=== PATIENT | female | born 1995 | race Caucasian/White ===

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

== ENCOUNTER 2017-08-12 10:04 | Emergency (ER) | payer MEDICAID ==
--- NOTE | 2017-08-12 12:01 | ED Physician Documentation ---
History of Present Illness - Stated complaint Stated Complaint: SI/MED REFILL - Chief complaint Chief Complaint: General - History obtained from History obtained from: Patient - History of Present Illness Timing: Other (She is between doctors and out of her Lexapro. She has chronic depression and suicidal ideation without plan, this is basically unchanged from prior. She is not feeling like she is at risk for doing something imminent. She needs a medication refill on her Lexapro and would also like to try something for when her anxiety is very bad. She has been on hydroxyzine in the past without relief.) Review of Systems Constitutional: denies: Fever, Chills GI: denies: Abdominal Pain : denies: Dysuria, Frequency, Now EGA Skin: denies: Rash, Lesions PD PAST MEDICAL HISTORY - Past Medical History Past Medical History: Yes Psych: Depression Other Past Medical History: celiac disease - Past Surgical History Past Surgical History: No - Present Medications Home Medications: Ambulatory Orders Medication Instructions Recorded Confirmed Alprazolam [Xanax] 0.5 mg PO Q6H PRN #5 tablet 08/12/17 Escitalopram Oxalate 20 mg PO DAILY 08/12/17 Escitalopram Oxalate [Lexapro] 20 mg PO DAILY #30 tablet 08/12/17 - Allergies Allergies/Adverse Reactions: Allergies Allergy/AdvReac Type Severity Reaction Status Date / Time No Known Drug Allergies Allergy Verified 08/12/17 10:17 - Social History Does the pt smoke?: Yes Smoking Status: Current every day smoker PD ED PE NORMAL - Vitals Vital signs reviewed: Yes - General General: Alert and oriented X 3, No acute distress - Neuro Neuro: Alert and oriented X 3 Eye Opening: Spontaneous Motor: Obeys Commands Verbal: Oriented GCS Score: 15 - Psych Psych: Normal mood, Normal affect Results - Vitals Vitals: Vital Signs - 24 hr 08/12/17 10:14 Temperature 37.1 C Heart Rate 110 H Respiratory 18 Rate Blood Pressure 132/91 H O2 Saturation 100 Oxygen O2 Source Room air Departure - Departure Disposition: 01 Home, Self Care Clinical Impression: Depression Qualifiers: Depression Type: major depressive disorder Major depression recurrence: recurrent Active/Remission status: currently active Major depression episode severity: moderate Qualified Code(s): F33.1 - Major depressive disorder, recurrent, moderate Condition: Good Record reviewed to determine appropriate education?: Yes Instructions: ED Depression Prescriptions: Alprazolam [Xanax] 0.5 mg PO Q6H PRN #5 tablet PRN Reason: Anxiety Escitalopram Oxalate [Lexapro] 20 mg PO DAILY #30 tablet Comments: Call your doctor to arrange a follow-up appointment, make the next available appointment. In the interim, return anytime if worse or if new symptoms develop. Your blood pressure was elevated today on check into the emergency department. This does not mean that you have hypertension, it is a common phenomenon to come to the emergency department and have elevated blood pressure. I recommend that you see your primary care physician within the week to have it rechecked when you are feeling better.
[2017-08-12 12:20] VITALS: BP 106/76
== END 2017-08-12 12:19 | disposition home or self-care (01) ==
LOC: ED 10:04
DX: F33.1 Major depressive disorder, recurrent, moderate (principal); R03.0 Elevated blood-pressure reading, without diagnosis of hypertension; F17.200 Nicotine dependence, unspecified, uncomplicated
CPT/HCPCS: 99283

== ENCOUNTER 2017-09-16 12:59 | Emergency (ER) | payer MEDICAID ==
--- NOTE | 2017-09-16 13:38 | ED Physician Documentation ---
PD HPI MHE - Stated complaint Stated Complaint: SI/NOT FEELING WELL - Chief complaint Chief Complaint: MHE - History obtained from History obtained from: Patient - History of Present Illness Primary symptom: Suicidal ideation (She has long-standing depression, it has been worse recently despite restarting her Lexapro maybe a month ago. She has persistent feelings of suicidal ideation without specific plan but is worried she might do something impulsive. She is not getting any support from her parents who feel like she just needs to be more yazdanism. She denies any alcohol or drug use today but she has been drinking on occasion.) Review of Systems Ten Systems: 10 systems reviewed and negative Constitutional: reports: Weight Loss (10 lbs or so). denies: Fever, Chills Eyes: reports: Reviewed and negative Throat: reports: Reviewed and negative Cardiac: reports: Reviewed and negative GI: reports: Abdominal Pain (chronic, d/t celiac), Diarrhea (chronic, d/t celiac ) PD PAST MEDICAL HISTORY - Past Medical History Past Medical History: Yes Psych: Depression Other Past Medical History: Celiac - Past Surgical History Past Surgical History: No - Present Medications Home Medications: Ambulatory Orders Medication Instructions Recorded Confirmed Alprazolam [Xanax] 0.5 mg PO Q6H PRN #5 tablet 08/12/17 Escitalopram Oxalate 20 mg PO DAILY 08/12/17 Escitalopram Oxalate [Lexapro] 20 mg PO DAILY #30 tablet 08/12/17 - Allergies Allergies/Adverse Reactions: Allergies Allergy/AdvReac Type Severity Reaction Status Date / Time No Known Drug Allergies Allergy Verified 08/12/17 10:17 - Social History Does the pt smoke?: Yes Smoking Status: Current every day smoker Does the pt drink ETOH?: No Does the pt have substance abuse?: No - Family History Family history: reports: Non contributory PD ED PE NORMAL - Vitals Vital signs reviewed: Yes - General General: Alert and oriented X 3, No acute distress - HEENT HEENT: PERRL, EOMI - Neck Neck: Supple, no meningeal sign, No bony TTP - Cardiac Cardiac: RRR, No murmur - Respiratory Respiratory: No respiratory distress, Clear bilaterally - Abdomen Abdomen: Normal bowel sounds, Soft, Non tender - Back Back: No CVA TTP, No spinal TTP - Derm Derm: Normal color, Warm and dry - Extremities Extremities: No edema, No calf tenderness / cord - Neuro Neuro: Alert and oriented X 3, Normal speech - Psych Psych: Normal affect, Other (Depressed mood, occasionally tearful.) Results - Vitals Vitals: Vital Signs - 24 hr 09/16/17 09/16/17 13:07 19:31 Temperature 36.1 C L 37.5 C Heart Rate 120 H 103 H Respiratory 15 12 Rate Blood Pressure 134/93 H 118/64 O2 Saturation 100 100 Oxygen O2 Source Room air - Labs Labs: Laboratory Tests 09/16/17 09/16/17 09/16/17 13:16 13:16 13:50 WBC 5.3 RBC 4.60 Hgb 12.8 Hct 38.7 MCV 84.2 MCH 27.8 MCHC 33.1 RDW 15.8 H Plt Count 244 MPV 7.9 Neut # 3.2 Lymph # 1.6 [place] # 0.3 Eos # 0.1 Baso # 0.0 Absolute Nucleated RBC 0.00 Nucleated RBC % 0.1 Sodium Potassium Chloride Carbon Dioxide Anion Gap BUN Creatinine Estimated GFR (MDRD) Glucose Calcium Total Bilirubin AST ALT Alkaline Phosphatase Total Protein Albumin Globulin Albumin/Globulin Ratio Lipase TSH Urine Color LT. YELLOW Urine Clarity CLEAR Urine pH 5.5 Ur Specific [place] <=1.005 Urine Protein NEGATIVE Urine Glucose (UA) NEGATIVE Urine Ketones NEGATIVE Urine Occult Blood NEGATIVE Urine Nitrite NEGATIVE Urine Bilirubin NEGATIVE Urine Urobilinogen 0.2 (NORMAL) Ur Leukocyte Esterase NEGATIVE Ur Microscopic Review NOT INDICATED Urine Culture Comments NOT INDICATED Urine HCG, Qual NEGATIVE Urine Opiates Screen NEGATIVE Ur Oxycodone Screen NEGATIVE Urine Methadone Screen NEGATIVE Ur Propoxyphene Screen NEGATIVE Ur Barbiturates Screen NEGATIVE Ur Tricyclics Screen NEGATIVE Ur Phencyclidine Scrn NEGATIVE Ur Amphetamine Screen NEGATIVE U Methamphetamines Scrn NEGATIVE U Benzodiazepines Scrn NEGATIVE Urine Cocaine Screen NEGATIVE U Cannabinoids Screen POSITIVE H Ethyl Alcohol 09/16/17 09/16/17 13:50 13:50 WBC RBC Hgb Hct MCV MCH MCHC RDW Plt Count MPV Neut # Lymph # [place] # Eos # Baso # Absolute Nucleated RBC Nucleated RBC % Sodium 137 Potassium 3.4 L Chloride 104 Carbon Dioxide 25 Anion Gap 8.0 BUN 5 L Creatinine 0.5 Estimated GFR (MDRD) 157 Glucose 99 Calcium 9.2 Total Bilirubin 1.3 H AST 22 ALT 18 Alkaline Phosphatase 61 Total Protein 7.5 Albumin 4.7 Globulin 2.8 Albumin/Globulin Ratio 1.7 Lipase 12 L TSH 1.00 Urine Color Urine Clarity Urine pH Ur Specific [place] Urine Protein Urine Glucose (UA) Urine Ketones Urine Occult Blood Urine Nitrite Urine Bilirubin Urine Urobilinogen Ur Leukocyte Esterase Ur Microscopic Review Urine Culture Comments Urine HCG, Qual Urine Opiates Screen Ur Oxycodone Screen Urine Methadone Screen Ur Propoxyphene Screen Ur Barbiturates Screen Ur Tricyclics Screen Ur Phencyclidine Scrn Ur Amphetamine Screen U Methamphetamines Scrn U Benzodiazepines Scrn Urine Cocaine Screen U Cannabinoids Screen Ethyl Alcohol < 5.0 PD MEDICAL DECISION MAKING - ED course ED course: Seen and evaluated by the social media job titles and a voluntary bed was arranged at [facility], [place] were completed. Departure - Departure Disposition: 65 Psych Hosp/Unit DC/Xfer Clinical Impression: Depression Qualifiers: Depression Type: major depressive disorder Major depression recurrence: recurrent Active/Remission status: currently active Major depression episode severity: severe Psychotic features: without psychotic features Qualified Code(s ): F33.2 - Major depressive disorder, recurrent severe without psychotic features Condition: Stable Discharge Date/Time: 09/16/17 20:10
[2017-09-16 13:55] LABS: BASOPHILS % (AUTO) 0.5 %; EOSINOPHILS # (AUTO) 0.1 10^3/uL (0.0-0.7); EOSINOPHILS % (AUTO) 1.9 %; HGB - HEMOGLOBIN 12.8 g/dL (12.0-16.0); LYMPHOCYTES # (AUTO) 1.6 10^3/uL (1.5-3.5); MEAN CORPUSCULAR HEMOGLOBIN 27.8 pg (27.0-31.0); MEAN CORPUSCULAR HGB CONC 33.1 g/dL (32.0-36.0); MEAN CORPUSCULAR VOLUME 84.2 fL (81.0-99.0); MEAN PLATELET VOLUME 7.9 fL (7.9-10.8); MONOCYTES # (AUTO) 0.3 10^3/uL (0.0-1.0); MONOCYTES % (AUTO) 6.4 %; NEUTROPHILS # (AUTO) 3.2 10^3/uL (1.5-6.6); NEUTROPHILS % (AUTO) 60.2 %; PLT - PLATELET COUNT 244 10^3/uL (130-450); RED CELL DISTRIBUTION WIDTH 15.8 % (12.0-15.0); WHITE BLOOD COUNT 5.3 x10^3/uL (4.8-10.8)
[2017-09-16 14:01] LABS: MUDS CUTOFF CONCENTRATIONS CUTOFF CONC BELOW:
[2017-09-16 14:04] LABS: BILIRUBIN,URINE NEGATIVE (NEGATIVE); GLUCOSE, URINE (UA) NEGATIVE (NEGATIVE); KETONES,URINE (UA) NEGATIVE (NEGATIVE); LEUKOCYTE ESTERASE, URINE NEGATIVE (NEGATIVE); NITRITE,URINE NEGATIVE (NEGATIVE); OCCULT BLOOD,URINE NEGATIVE (NEGATIVE); PH,URINE 5.5 PH (5.0-7.5); PROTEIN,URINE NEGATIVE (NEGATIVE); UROBILINOGEN,URINE 0.2 (NORMAL) E.U./dL (NORMAL)
[2017-09-16 14:06] LABS: CLARITY,URINE CLEAR (CLEAR)
[2017-09-16 14:06] LABS: ALBUMIN 4.7 g/dL (3.2-5.5); ALBUMIN/GLOBULIN RATIO 1.7 (1.0-2.2); ALKALINE PHOSPHATASE 61 IU/L (42-121); ALT ALANINE AMINOTRANSFERASE 18 IU/L (10-60); AST ASPARTATE AMINOTRANSFERASE 22 IU/L (10-42); BILIRUBIN,TOTAL 1.3 mg/dL (0.2-1.0); BUN - BLOOD UREA NITROGEN 5 mg/dL (6-20); CALCIUM 9.2 mg/dL (8.5-10.3); CARBON DIOXIDE - CO2 25 mmol/L (21-32); CHLORIDE 104 mmol/L (101-111); CREATININE 0.5 mg/dL (0.4-1.0); GFR - MDRD 157 (>89); GLUCOSE 99 mg/dL (70-100); LIPASE 12 U/L (22-51); SODIUM 137 mmol/L (135-145); TOTAL PROTEIN 7.5 g/dL (6.7-8.2)
[2017-09-16 14:07] LABS: HCG UR QUAL NEGATIVE
[2017-09-16 14:14] LABS: AMPHETAMINE SCREEN,URINE NEGATIVE (NEGATIVE); BENZODIAZEPINES SCREEN, URINE NEGATIVE (NEGATIVE); COCAINE SCREEN URINE NEGATIVE (NEGATIVE); METHADONE SCREEN, URINE NEGATIVE (NEGATIVE); METHAMPHETAMINES SCREEN, URINE NEGATIVE (NEGATIVE); OPIATE SCREEN, URINE NEGATIVE (NEGATIVE); OXYCODONE SCREEN, URINE NEGATIVE (NEGATIVE); PROPOXYPHENE SCREEN, URINE NEGATIVE (NEGATIVE); TRICYCLIC ANTIDEPRESSANT,URINE NEGATIVE (NEGATIVE)
[2017-09-16] MEDS ORDERED: ONDANSETRON ODT 4 MG TABLET TL STA (17:16)
[2017-09-16] MEDS ORDERED: PROMETHAZINE 25 MG TABLET PO STA (18:50)
[2017-09-16 19:32] VITALS: BP 118/64
== END 2017-09-16 20:10 ==
LOC: ED 12:59
DX: F33.2 Major depressive disorder, recurrent severe without psychotic features (principal); R45.851 Suicidal ideations; F17.200 Nicotine dependence, unspecified, uncomplicated
CPT/HCPCS: 36415; 80053; 80306; 80320; 81003; 81025; 83690; 84443; 85025; 99283; 99284; Q0162; Q0169; 81001; 87086

== ENCOUNTER 2017-10-08 11:07 | Outpatient (CLI) | payer MEDICAID ==
[2017-10-08 18:58] LABS: BASOPHILS % (AUTO) 0.6 %; EOSINOPHILS # (AUTO) 0.1 10^3/uL (0.0-0.7); EOSINOPHILS % (AUTO) 2.5 %; HGB - HEMOGLOBIN 12.3 g/dL (12.0-16.0); LYMPHOCYTES # (AUTO) 1.2 10^3/uL (1.5-3.5); LYMPHOCYTES % (AUTO) 22.1 %; MEAN CORPUSCULAR HEMOGLOBIN 27.9 pg (27.0-31.0); MEAN CORPUSCULAR HGB CONC 32.2 g/dL (32.0-36.0); MEAN CORPUSCULAR VOLUME 86.6 fL (81.0-99.0); MEAN PLATELET VOLUME 8.8 fL (7.9-10.8); MONOCYTES # (AUTO) 0.3 10^3/uL (0.0-1.0); MONOCYTES % (AUTO) 5.9 %; NEUTROPHILS # (AUTO) 3.7 10^3/uL (1.5-6.6); NEUTROPHILS % (AUTO) 68.9 %; PLT - PLATELET COUNT 310 10^3/uL (130-450); RED BLOOD COUNT 4.41 10^6/uL (4.20-5.40); RED CELL DISTRIBUTION WIDTH 15.9 % (12.0-15.0); WHITE BLOOD COUNT 5.4 x10^3/uL (4.8-10.8)
[2017-10-08 19:33] LABS: BUN - BLOOD UREA NITROGEN 6 mg/dL (6-20); CALCIUM 9.3 mg/dL (8.5-10.3); CARBON DIOXIDE - CO2 26 mmol/L (21-32); CHLORIDE 103 mmol/L (101-111); CREATININE 0.5 mg/dL (0.4-1.0); GFR - MDRD 157 (>89); GLUCOSE 96 mg/dL (70-100); SODIUM 137 mmol/L (135-145)
== END 2017-10-08 11:08 | disposition home or self-care (01) ==
LOC: LAB.N 11:07
PROVIDERS: ATTEND Physician Assistant Medical
DX: G47.00 Insomnia, unspecified (principal); F41.9 Anxiety disorder, unspecified
CPT/HCPCS: 36415; 80048; 84443; 85025

== ENCOUNTER 2017-10-28 14:02 | Emergency (ER) | payer MEDICAID ==
[2017-10-28 16:05] LABS: BASOPHILS % (AUTO) 0.6 %; EOSINOPHILS % (AUTO) 0.1 %; HGB - HEMOGLOBIN 13.4 g/dL (12.0-16.0); LYMPHOCYTES % (AUTO) 23.3 %; MEAN CORPUSCULAR HEMOGLOBIN 26.8 pg (27.0-31.0); MEAN CORPUSCULAR HGB CONC 31.5 g/dL (32.0-36.0); MEAN CORPUSCULAR VOLUME 84.9 fL (81.0-99.0); MEAN PLATELET VOLUME 7.2 fL (7.9-10.8); MONOCYTES # (AUTO) 0.3 10^3/uL (0.0-1.0); MONOCYTES % (AUTO) 6.2 %; NEUTROPHILS # (AUTO) 3.1 10^3/uL (1.5-6.6); NEUTROPHILS % (AUTO) 69.8 %; PLT - PLATELET COUNT 320 10^3/uL (130-450); RED BLOOD COUNT 5.01 10^6/uL (4.20-5.40); RED CELL DISTRIBUTION WIDTH 15.1 % (12.0-15.0); WHITE BLOOD COUNT 4.4 x10^3/uL (4.8-10.8)
--- NOTE | 2017-10-28 16:05 | ED Physician Documentation ---
PD HPI NVD - Stated complaint Stated Complaint: VOMITING - Chief complaint Chief Complaint: Abd Pain - History obtained from History obtained from: Patient - History of Present Illness Timing - onset: Other (2 days of vomiting and cramps, small amt of diarrhea. Small possibility of , but has IUD in place.) Timing - details: Abrupt onset Associated symptoms: Abdominal pain. No: Fever - Additonal information Additional information: She has a history of celiac disease disease diagnosed by upper endoscopy. She has never had a colonoscopy. She notes that over the last few months she has had a significant weight loss and she is very thin. She iused to weigh about 120 pounds and now is slightly less than 100. She has been trying to gain weight and she does not think her depression is relevant to this. Review of Systems Constitutional: reports: Reviewed and negative Cardiac: reports: Reviewed and negative Respiratory: reports: Reviewed and negative PD PAST MEDICAL HISTORY - Past Medical History Psych: Depression - Past Surgical History Past Surgical History: No - Present Medications Home Medications: Ambulatory Orders Medication Instructions Recorded Confirmed Dicyclomine HCl 20 mg PO QID PRN #20 tablet 10/28/17 FLUoxetine [PROzac] 60 mg PO DAILY 10/28/17 10/28/17 Ondansetron HCl [Zofran] 4 mg PO Q6H PRN #10 tablet 10/28/17 - Allergies Allergies/Adverse Reactions: Allergies Allergy/AdvReac Type Severity Reaction Status Date / Time No Known Drug Allergies Allergy Verified 10/28/17 14:15 - Social History Does the pt smoke?: Yes Smoking Status: Current every day smoker Does the pt drink ETOH?: No Does the pt have substance abuse?: No PD ED PE NORMAL - Vitals Vital signs reviewed: Yes (Tachycardic) - General General: Alert and oriented X 3, No acute distress - HEENT HEENT: PERRL, EOMI - Neck Neck: Supple, no meningeal sign, No bony TTP - Cardiac Cardiac: RRR, No murmur - Respiratory Respiratory: No respiratory distress, Clear bilaterally - Abdomen Abdomen: Normal bowel sounds, Soft, Non tender - Derm Derm: Normal color, Warm and dry - Neuro Neuro: Alert and oriented X 3, Normal speech - Psych Psych: Normal mood, Normal affect Results - Vitals Vitals: Vital Signs - 24 hr 10/28/17 10/28/17 10/28/17 14:12 17:19 19:07 Temperature 36.7 C Heart Rate 134 H 82 104 H Respiratory 16 16 18 Rate Blood Pressure 116/66 111/68 119/70 O2 Saturation 99 100 100 Oxygen O2 Source Room air - Labs Labs: Laboratory Tests 10/28/17 10/28/17 10/28/17 15:38 16:00 16:00 WBC 4.4 L RBC 5.01 Hgb 13.4 Hct 42.5 MCV 84.9 MCH 26.8 L MCHC 31.5 L RDW 15.1 H Plt Count 320 MPV 7.2 L Neut # 3.1 Lymph # 1.0 L [place] # 0.3 Eos # 0.0 Baso # 0.0 Absolute Nucleated RBC 0.01 Nucleated RBC % 0.1 Sodium 135 Potassium 3.1 L Chloride 102 Carbon Dioxide 21 Anion Gap 12.0 BUN 7 Creatinine 0.5 Estimated GFR (MDRD) 157 Glucose 98 Calcium 9.0 Total Bilirubin 1.4 H AST 30 ALT 20 Alkaline Phosphatase 73 Total Protein 7.4 Albumin 4.2 Globulin 3.2 Albumin/Globulin Ratio 1.3 Lipase 18 L TSH Urine Color YELLOW Urine Clarity HAZY Urine pH 6.0 Ur Specific [place] >=1.030 H Urine Protein 30 H Urine Glucose (UA) NEGATIVE Urine Ketones >=80 H Urine Occult Blood NEGATIVE Urine Nitrite NEGATIVE Urine Bilirubin NEGATIVE Urine Urobilinogen 0.2 (NORMAL) Ur Leukocyte Esterase NEGATIVE Urine RBC None Seen Urine WBC 0-3 Ur Squamous Epith Cells MANY Squamous H Urine Bacteria Few Urine Mucus Marked Strands Ur Microscopic Review INDICATED Urine Culture Comments NOT INDICATED Urine HCG, Qual NEGATIVE 10/28/17 16:00 WBC RBC Hgb Hct MCV MCH MCHC RDW Plt Count MPV Neut # Lymph # [place] # Eos # Baso # Absolute Nucleated RBC Nucleated RBC % Sodium Potassium Chloride Carbon Dioxide Anion Gap BUN Creatinine Estimated GFR (MDRD) Glucose Calcium Total Bilirubin AST ALT Alkaline Phosphatase Total Protein Albumin Globulin Albumin/Globulin Ratio Lipase TSH 0.41 Urine Color Urine Clarity Urine pH Ur Specific [place] Urine Protein Urine Glucose (UA) Urine Ketones Urine Occult Blood Urine Nitrite Urine Bilirubin Urine Urobilinogen Ur Leukocyte Esterase Urine RBC Urine WBC Ur Squamous Epith Cells Urine Bacteria Urine Mucus Ur Microscopic Review Urine Culture Comments Urine HCG, Qual - Rads (name of study) CT A/P Radiology: EMP read contemporaneously (Maybe colitis, IUD in place, no other abnormal) PD MEDICAL DECISION MAKING - ED course ED course: 22-year-old woman with nausea and weight loss. She has a history of celiac disease but has been compliant with a gluten-free diet. She has basically unremarkable labs here with mild lymphopenia and mild hypokalemia which was treated orally. CT as shown. Does not seem like an infectious issue and follow -up for referral for colonoscopy was advised. Departure - Departure Disposition: 01 Home, Self Care Clinical Impression: Weight loss Abdominal pain Qualifiers: Abdominal location: generalized Qualified Code(s): R10.84 - Generalized abdominal pain Vomiting Qualifiers: Vomiting type: unspecified Vomiting Intractability: non-intractable Nausea presence: with nausea Qualified Code(s): R11.2 - Nausea with vomiting, unspecified Condition: Good Record reviewed to determine appropriate education?: Yes Instructions: Abdominal Pain Prescriptions: Dicyclomine HCl 20 mg PO QID PRN #20 tablet PRN Reason: Abdominal Cramps Ondansetron HCl [Zofran] 4 mg PO Q6H PRN #10 tablet PRN Reason: Nausea / Vomiting Comments: Follow-up with your PA at the [facility] and discuss referral for gastroenterology and evaluation for potential colonoscopy. Return if worsening. Discharge Date/Time: 10/28/17 20:13
[2017-10-28 16:11] LABS: GLUCOSE, URINE (UA) NEGATIVE (NEGATIVE); KETONES,URINE (UA) >=80 mg/dL (NEGATIVE); LEUKOCYTE ESTERASE, URINE NEGATIVE (NEGATIVE); NITRITE,URINE NEGATIVE (NEGATIVE); OCCULT BLOOD,URINE NEGATIVE (NEGATIVE); PROTEIN,URINE 30 mg/dL (NEGATIVE); UROBILINOGEN,URINE 0.2 (NORMAL) E.U./dL (NORMAL)
[2017-10-28] MEDS ORDERED: ONDANSETRON 4 MG/2 ML VIAL IVP STA (16:12)
[2017-10-28] MEDS ORDERED: DICYCLOMINE 10 MG CAPSULE PO STA (16:12)
[2017-10-28] MEDS ORDERED: SODIUM CHLORIDE 0.9% 1,000 ML IV ONE (16:12)
[2017-10-28 16:15] LABS: BILIRUBIN,URINE NEGATIVE (NEGATIVE); CLARITY,URINE HAZY (CLEAR); HCG UR QUAL NEGATIVE; ICTOTEST,URINE NEGATIVE
[2017-10-28 16:17] LABS: ALBUMIN 4.2 g/dL (3.2-5.5); ALBUMIN/GLOBULIN RATIO 1.3 (1.0-2.2); BILIRUBIN,TOTAL 1.4 mg/dL (0.2-1.0); CREATININE 0.5 mg/dL (0.4-1.0); TOTAL PROTEIN 7.4 g/dL (6.7-8.2)
[2017-10-28 16:21] LABS: BACTERIA,URINE Few /HPF (None Seen); MUCUS,URINE Marked Strands; RBC,URINE None Seen /HPF (0-5); SQUAMOUS EPITHELIAL CELL,UR MANY Squamous (<= Few)
[2017-10-28] MEDS ORDERED: IOPAMIDOL-300 50 ML VIAL ONE (16:28)
[2017-10-28] MEDS ORDERED: IOPAMIDOL-300 100 ML VIAL ONE (16:28)
[2017-10-28] MEDS ORDERED: IOPAMIDOL-300 50 ML VIAL PO ONE (16:29)
[2017-10-28] MEDS ORDERED: POTASSIUM BICARB 25 MEQ TABLET PO STA (16:48)
[2017-10-28] MEDS ORDERED: METOCLOPRAMIDE 10 MG/2 ML VIAL IVP STA (17:30)
[2017-10-28] MEDS ORDERED: diphenhydrAMINE INJ 50 MG/ML VIAL IVP STA (17:53)
[2017-10-28] MEDS ORDERED: IOPAMIDOL-300 100 ML VIAL IVP ONE (18:53)
[2017-10-28 19:07] VITALS: BP 119/70
--- NOTE | 2017-10-28 19:50 | CT Preliminary Report ---
Exam: CT ABDOMEN/PELVIS W/ IMPRESSION: 1. Equivocal wall thickening of the sigmoid colon without significant adjacent inflammation. This may be due to incomplete distention rather than colitis. No obstruction. Normal appendix. 2. IUD noted in expected position. Normal pelvic organs. 3. No pathologic adenopathy or mass. [facility] SITE ID: [id number]
--- NOTE | 2017-10-28 19:54 | CT Report ---
EXAM: CT ABDOMEN AND PELVIS EXAM DATE: 10/28/2017 06:53 PM. CLINICAL HISTORY: IV and PO, weight loss, abdominal pain, vomiting. COMPARISONS: None. TECHNIQUE: Routine helical CT imaging was performed through the abdomen and pelvis. IV contrast: 80 m L Isovue 300. Enteric contrast: No. Reconstructions: Coronal and sagittal. In accordance with CT protocol optimization, one or more of the following dose reduction techniques w ere utilized for this exam: automated exposure control, adjustment of mA and/or KV based on patient s ize, or use of iterative reconstructive technique. FINDINGS: Lung Bases: Unremarkable. Liver: Normal. No masses. Gallbladder/Bile Ducts: Unremarkable. Spleen: Normal. Pancreas: Normal. Adrenal Glands: Normal. Kidneys: Normal. No masses or hydronephrosis. Peritoneal Cavity/Bowel: Normal. No free fluid, free air or adenopathy. No masses or acute inflammato ry process. The appendix is well visualized and normal. Equivocal wall thickening of the sigmoid colo n without significant adjacent inflammation. This may be due to incomplete distention. Pelvic Organs: IUD is noted within the uterus. The bladder and visualized pelvic organs are within no rmal limits. Vasculature: No aneurysms or other significant abnormality. Bones: No significant abnormality. Other: None. IMPRESSION: 1. Equivocal wall thickening of the sigmoid colon without significant adjacent inflammation. This may be due to incomplete distention rather than colitis. No obstruction. Normal appendix. 2. IUD noted in expected position. Normal pelvic organs. 3. No pathologic adenopathy or mass. [facility] Referring Provider Line: [phone] SITE ID: [id number]
== END 2017-10-28 20:13 | disposition home or self-care (01) ==
LOC: ED 14:02
DX: R10.84 Generalized abdominal pain (principal); R11.2 Nausea with vomiting, unspecified; R63.4 Abnormal weight loss; K90.0 Celiac disease; F32.9 Major depressive disorder, single episode, unspecified; F17.200 Nicotine dependence, unspecified, uncomplicated
CPT/HCPCS: 36415; 74177; 80053; 81001; 81025; 83690; 84443; 85025; 96361; 96374; 96375; 99283; 99284; A9270; J1200; J2765; Q9967; 81003; 87086

== ENCOUNTER 2019-04-04 07:00 | Outpatient (CLI) | payer MEDICAID ==
[2019-04-04 21:20] LABS: CANDIDA GROUP DNA NEGATIVE (NEGATIVE); CANDIDA KRUSEI DNA NEGATIVE (NEGATIVE); TRICHOMONAS VAGINALIS DNA NEGATIVE (NEGATIVE)
== END 2019-04-04 23:59 | disposition home or self-care (01) ==
LOC: LAB.R 07:00
PROVIDERS: ATTEND Nurse Practitioner Obstetrics & Gynecology
DX: N76.0 Acute vaginitis (principal); B37.3 Candidiasis of vulva and vagina
CPT/HCPCS: 87661; 87801

== ENCOUNTER 2019-05-02 07:00 | Outpatient (CLI) | payer MEDICAID ==
[2019-05-03 18:46] LABS: CANDIDA GROUP DNA NEGATIVE (NEGATIVE); CANDIDA KRUSEI DNA NEGATIVE (NEGATIVE); TRICHOMONAS VAGINALIS DNA NEGATIVE (NEGATIVE)
== END 2019-05-02 23:59 | disposition home or self-care (01) ==
LOC: LAB.R 07:00
PROVIDERS: ATTEND Obstetrics & Gynecology
DX: N89.8 Other specified noninflammatory disorders of vagina (principal)
CPT/HCPCS: 87661; 87801

== ENCOUNTER 2019-06-08 08:00 | Outpatient (CLI) | payer MEDICAID ==
[2019-06-08 20:30] LABS: CANDIDA GROUP DNA NEGATIVE (NEGATIVE); CANDIDA KRUSEI DNA NEGATIVE (NEGATIVE); TRICHOMONAS VAGINALIS DNA NEGATIVE (NEGATIVE)
[2019-06-08 23:21] LABS: TRICHOMONAS VAGINALIS DNA NEGATIVE (NEGATIVE)
== END 2019-06-08 23:59 | disposition home or self-care (01) ==
LOC: LAB.R 08:00
PROVIDERS: ATTEND Obstetrics & Gynecology
DX: N76.0 Acute vaginitis (principal)
CPT/HCPCS: 87491; 87591; 87661; 87801

== ENCOUNTER 2019-08-12 15:56 | Emergency (ER) | payer MEDICAID ==
--- NOTE | 2019-08-12 16:10 | ED Physician Documentation ---
PD HPI UPPER EXT INJURY - Stated complaint Stated Complaint: RT WRIST INJ - Chief complaint Chief Complaint: Trauma Ext - History obtained from History obtained from: Patient (FOOSH injury off a wall about an hour ago. Isolated right wrist injury. No other injuries. Declines pain medication on initial evaluation. very unlikely as she has an IUD in place and is currently on her menses.) Review of Systems Constitutional: reports: Reviewed and negative Cardiac: reports: Reviewed and negative Respiratory: reports: Reviewed and negative PD PAST MEDICAL HISTORY - Past Medical History Past Medical History: Yes Psych: Depression, Anxiety Other Past Medical History: ciliac disease - Past Surgical History Past Surgical History: No - Allergies Allergies/Adverse Reactions: Allergies Allergy/AdvReac Type Severity Reaction Status Date / Time No Known Drug Allergies Allergy Verified 08/12/19 15:58 - Social History Does the pt smoke?: Yes Smoking Status: Current some day smoker Does the pt drink ETOH?: Yes Does the pt have substance abuse?: Yes Substance Use and Type: Marijuana - Immunizations Immunizations are current?: Yes - POLST Patient has POLST: No PD ED PE NORMAL - Vitals Vital signs reviewed: Yes - General General: Alert and oriented X 3, No acute distress - Extremities Extremities: Other (Mild tenderness without deformity over the dorsal wrist, no elbow or hand tenderness. Normal neurovascular function in the right hand.) - Neuro Neuro: Alert and oriented X 3, Normal speech Results - Vitals Vitals: Vital Signs - 24 hr 08/12/19 15:58 Temperature 36.9 C Heart Rate 105 H Respiratory 20 Rate Blood Pressure 127/89 H O2 Saturation 95 Oxygen O2 Source Room air - Rads (name of study) R wrist 4v Radiology: EMP read contemporaneously (normal) Departure - Departure Disposition: 01 Home, Self Care Clinical Impression: Right wrist sprain Qualifiers: Encounter type: initial encounter Qualified Code(s): S63.501A - Unspecified sprain of right wrist, initial encounter Condition: Good Record reviewed to determine appropriate education?: Yes Instructions: ED Sprain Wrist Comments: Recheck with your doctor in a week if not better, Tylenol or ibuprofen as needed for pain. Return for new or worsening symptoms.
--- NOTE | 2019-08-12 16:36 | XRAY Report ---
Reason: wrist inj Procedure Date: 08/12/2019 Accession Number: [id number] / [id number] Procedure: XR - Wrist 4 View RT CPT Code: Final Report FULL RESULT: EXAM: RIGHT WRIST RADIOGRAPHY EXAM DATE: 08/12/2019 04:29 PM. CLINICAL HISTORY: Wrist inj. COMPARISON: None available. TECHNIQUE: 4 views. FINDINGS: Bones: Normal. No fractures or bone lesions. Joints: Normal. No subluxations. Soft Tissues: Normal. No soft tissue swelling. IMPRESSION: Negative right wrist. [facility]
[2019-08-12 17:07] VITALS: BP 118/83
== END 2019-08-12 17:05 | disposition home or self-care (01) ==
LOC: ED 15:56
DX: S63.501A Unspecified sprain of right wrist, initial encounter (principal); W17.89XA Other fall from one level to another, initial encounter; Y93.31 Activity, mountain climbing, rock climbing and wall climbing; Y92.832 Beach as the place of occurrence of the external cause; F17.200 Nicotine dependence, unspecified, uncomplicated
CPT/HCPCS: 99282; 99283

== ENCOUNTER 2019-08-19 15:35 | Emergency (ER) | payer MEDICAID ==
--- NOTE | 2019-08-19 16:02 | ED Physician Documentation ---
PD HPI MHE - Stated complaint Stated Complaint: MHE - Chief complaint Chief Complaint: MHE - History obtained from History obtained from: Patient - History of Present Illness Primary symptom: Suicidal ideation (24-year-old woman with longstanding depression, she wonders if she might have bipolar illness because she kind of rapidly cycles. She was out of the bridge today considering jumping because of some strife between her and her boyfriend. She does not feel suicidal now. Does not want to be hospitalized.) Review of Systems Ten Systems: 10 systems reviewed and negative Constitutional: reports: Reviewed and negative Cardiac: reports: Reviewed and negative Respiratory: reports: Reviewed and negative PD PAST MEDICAL HISTORY - Past Medical History Past Medical History: Yes Psych: Depression, Anxiety - Past Surgical History Past Surgical History: No - Allergies Allergies/Adverse Reactions: Allergies Allergy/AdvReac Type Severity Reaction Status Date / Time No Known Drug Allergies Allergy Verified 08/12/19 15:58 - Social History Does the pt smoke?: Yes Smoking Status: Current some day smoker Does the pt drink ETOH?: Yes Does the pt have substance abuse?: Yes - Family History Family history: reports: Non contributory - Immunizations Immunizations are current?: Yes - POLST Patient has POLST: No PD ED PE NORMAL - Vitals Vital signs reviewed: Yes - General General: Alert and oriented X 3, No acute distress - HEENT HEENT: PERRL, EOMI - Neck Neck: Supple, no meningeal sign, No bony TTP - Cardiac Cardiac: RRR, No murmur - Respiratory Respiratory: No respiratory distress, Clear bilaterally - Abdomen Abdomen: Soft, Non tender - Back Back: No CVA TTP, No spinal TTP - Derm Derm: Normal color, Warm and dry - Extremities Extremities: No edema, No calf tenderness / cord - Neuro Neuro: Alert and oriented X 3, No motor deficit, No sensory deficit, Normal speech Results - Vitals Vitals: Vital Signs - 24 hr 08/19/19 08/20/19 15:49 03:58 Temperature 36.7 C 36.9 C Heart Rate 87 112 H Respiratory 12 18 Rate Blood Pressure 124/87 H 114/64 O2 Saturation 99 100 Oxygen O2 Source Room air - Labs Labs: Laboratory Tests 08/19/19 08/19/19 08/19/19 16:15 16:15 16:15 WBC 5.5 RBC 4.30 Hgb 12.8 Hct 39.3 MCV 91.4 MCH 29.8 MCHC 32.6 RDW 13.6 Plt Count 280 MPV 9.7 Neut # (Auto) 3.8 Lymph # (Auto) 1.4 L Coal # (Auto) 0.3 Eos # (Auto) 0.0 Baso # (Auto) 0.0 Absolute Nucleated RBC 0.00 Nucleated RBC % 0.0 Sodium 138 Potassium 3.8 Chloride 104 Carbon Dioxide 25 Anion Gap 9.0 BUN 6 Creatinine 0.4 Estimated GFR (MDRD) 200 Glucose 101 H Calcium 9.4 Total Bilirubin 1.3 H AST 18 ALT 11 Alkaline Phosphatase 41 L Total Protein 7.7 Albumin 4.8 Globulin 2.9 Albumin/Globulin Ratio 1.7 Lipase 21 L TSH 0.68 Urine Color Urine Clarity Urine pH Ur Specific [place] Urine Protein Urine Glucose (UA) Urine Ketones Urine Occult Blood Urine Nitrite Urine Bilirubin Urine Urobilinogen Ur Leukocyte Esterase Urine RBC Urine WBC Ur Squamous Epith Cells Urine Bacteria Ur Microscopic Review Urine Culture Comments Urine HCG, Qual Salicylates < 6.0 Urine Opiates Screen Ur Oxycodone Screen Urine Methadone Screen Ur Propoxyphene Screen Acetaminophen < 10 L Ur Barbiturates Screen Ur Tricyclics Screen Ur Phencyclidine Scrn Ur Amphetamine Screen U Methamphetamines Scrn U Benzodiazepines Scrn Urine Cocaine Screen U Cannabinoids Screen Ethyl Alcohol < 5.0 08/19/19 08/19/19 16:27 16:27 WBC RBC Hgb Hct MCV MCH MCHC RDW Plt Count MPV Neut # (Auto) Lymph # (Auto) Coal # (Auto) Eos # (Auto) Baso # (Auto) Absolute Nucleated RBC Nucleated RBC % Sodium Potassium Chloride Carbon Dioxide Anion Gap BUN Creatinine Estimated GFR (MDRD) Glucose Calcium Total Bilirubin AST ALT Alkaline Phosphatase Total Protein Albumin Globulin Albumin/Globulin Ratio Lipase TSH Urine Color YELLOW Urine Clarity CLEAR Urine pH 7.5 Ur Specific [place] 1.015 Urine Protein NEGATIVE Urine Glucose (UA) NEGATIVE Urine Ketones TRACE Urine Occult Blood NEGATIVE Urine Nitrite NEGATIVE Urine Bilirubin NEGATIVE Urine Urobilinogen 0.2 (NORMAL) Ur Leukocyte Esterase TRACE H Urine RBC None Seen Urine WBC 4-5 Ur Squamous Epith Cells MOD Squamous H Urine Bacteria None Seen Ur Microscopic Review INDICATED Urine Culture Comments NOT INDICATED Urine HCG, Qual NEGATIVE Salicylates Urine Opiates Screen NEGATIVE Ur Oxycodone Screen NEGATIVE Urine Methadone Screen NEGATIVE Ur Propoxyphene Screen NEGATIVE Acetaminophen Ur Barbiturates Screen NEGATIVE Ur Tricyclics Screen NEGATIVE Ur Phencyclidine Scrn NEGATIVE Ur Amphetamine Screen NEGATIVE U Methamphetamines Scrn NEGATIVE U Benzodiazepines Scrn NEGATIVE Urine Cocaine Screen NEGATIVE U Cannabinoids Screen POSITIVE H Ethyl Alcohol PD MEDICAL DECISION MAKING - ED course ED course: 24-year-old woman presents with depression, she was at the deception past. Was considering jumping. She is brought in accompanied by police deputy, currently voluntary but given the circumstances recommendation was made from [facility]'s deputy to convert her to involuntary if she was not receptive to inpatient treatment. I agree she would benefit for inpatient treatment and is fairly high risk. Patient did not want to be admitted but agreed to wait and talk with the tele-psychiatric program evaluation consultant. This was done and he rec inpt admit and seroquel, arrangements made for xfer to [facility]. Departure - Departure Disposition: 65 Psych Hosp/Unit DC/Xfer Clinical Impression: Suicidal ideation Depression Qualifiers: Depression Type: major depressive disorder Major depression recurrence: recurrent Active/Remission status: currently active Major depression episode severity: severe Psychotic features: without psychotic features Qualified Code(s): F33.2 - Major depressive disorder, recurrent severe without psychotic features Instructions: ED Depression Discharge Date/Time: 08/20/19 03:58
[2019-08-19 16:19] LABS: BASOPHILS % (AUTO) 0.4 %; EOSINOPHILS % (AUTO) 0.2 %; HGB - HEMOGLOBIN 12.8 g/dL (12.0-16.0); LYMPHOCYTES # (AUTO) 1.4 10^3/uL (1.5-3.5); LYMPHOCYTES % (AUTO) 25.1 %; MEAN CORPUSCULAR HEMOGLOBIN 29.8 pg (27.0-31.0); MEAN CORPUSCULAR HGB CONC 32.6 g/dL (32.0-36.0); MEAN CORPUSCULAR VOLUME 91.4 fL (81.0-99.0); MEAN PLATELET VOLUME 9.7 fL (7.9-10.8); MONOCYTES # (AUTO) 0.3 10^3/uL (0.0-1.0); MONOCYTES % (AUTO) 5.2 %; NEUTROPHILS # (AUTO) 3.8 10^3/uL (1.5-6.6); NEUTROPHILS % (AUTO) 68.7 %; PLT - PLATELET COUNT 280 10^3/uL (130-450); RED CELL DISTRIBUTION WIDTH 13.6 % (12.0-15.0); WHITE BLOOD COUNT 5.5 x10^3/uL (4.8-10.8)
[2019-08-19 16:35] LABS: ACETAMINOPHEN < 10 ug/mL (10-30); ALBUMIN 4.8 g/dL (3.2-5.5); ALBUMIN/GLOBULIN RATIO 1.7 (1.0-2.2); ALKALINE PHOSPHATASE 41 IU/L (42-121); ALT ALANINE AMINOTRANSFERASE 11 IU/L (10-60); AST ASPARTATE AMINOTRANSFERASE 18 IU/L (10-42); BILIRUBIN,TOTAL 1.3 mg/dL (0.2-1.0); BUN - BLOOD UREA NITROGEN 6 mg/dL (6-20); CALCIUM 9.4 mg/dL (8.5-10.3); CARBON DIOXIDE - CO2 25 mmol/L (21-32); CHLORIDE 104 mmol/L (101-111); CREATININE 0.4 mg/dL (0.4-1.0); GFR - MDRD 200 (>89); GLUCOSE 101 mg/dL (70-100); LIPASE 21 U/L (22-51); SALICYLATE < 6.0 mg/dL; SODIUM 138 mmol/L (135-145); TOTAL PROTEIN 7.7 g/dL (6.7-8.2)
[2019-08-19 16:37] LABS: MUDS CUTOFF CONCENTRATIONS CUTOFF CONC BELOW:
[2019-08-19 16:38] LABS: BILIRUBIN,URINE NEGATIVE (NEGATIVE); GLUCOSE, URINE (UA) NEGATIVE (NEGATIVE); KETONES,URINE (UA) TRACE mg/dL (NEGATIVE); LEUKOCYTE ESTERASE, URINE TRACE (NEGATIVE); NITRITE,URINE NEGATIVE (NEGATIVE); OCCULT BLOOD,URINE NEGATIVE (NEGATIVE); PH,URINE 7.5 PH (5.0-7.5); PROTEIN,URINE NEGATIVE (NEGATIVE); UROBILINOGEN,URINE 0.2 (NORMAL) E.U./dL (NORMAL)
[2019-08-19 16:51] LABS: BACTERIA,URINE None Seen /HPF (None Seen); CLARITY,URINE CLEAR (CLEAR); HCG UR QUAL NEGATIVE; RBC,URINE None Seen /HPF (0-5); SQUAMOUS EPITHELIAL CELL,UR MOD Squamous (<= Few)
[2019-08-19 16:52] LABS: AMPHETAMINE SCREEN,URINE NEGATIVE (NEGATIVE); BENZODIAZEPINES SCREEN, URINE NEGATIVE (NEGATIVE); COCAINE SCREEN URINE NEGATIVE (NEGATIVE); METHADONE SCREEN, URINE NEGATIVE (NEGATIVE); METHAMPHETAMINES SCREEN, URINE NEGATIVE (NEGATIVE); OPIATE SCREEN, URINE NEGATIVE (NEGATIVE); OXYCODONE SCREEN, URINE NEGATIVE (NEGATIVE); PROPOXYPHENE SCREEN, URINE NEGATIVE (NEGATIVE); TRICYCLIC ANTIDEPRESSANT,URINE NEGATIVE (NEGATIVE)
[2019-08-19] MEDS ORDERED: QUEtiapine 25 MG TABLET PO STA (22:23)
[2019-08-19] MEDS ORDERED: LORazepam 1 MG TABLET PO STA (22:41)
--- NOTE | 2019-08-19 22:43 | TELEPSYCH PHYS NOTE ---
Telepsych Note - CHIEF COMPLAINT/HX OF PRESENT ILLNESS Cheif Complaint and History of Present Illness: Chief Complaint: SI HPI: The patient is a 24-year-old female brought to the hospital by police. She had a fight with her boyfriend and drove to a bridge contemplating jumping off. The patient did not jump and was found by police and brought to the ER for evaluation. When seen by psychiatry, the patient stated that her mood shifts suddenly from feeling horrible and depressed to feeling really good. The episodes usually last for several days at a time but lately her moods have been changing almost daily. Mood shifts typically occur independent of outside stressors. The patient thinks she may be Bipolar. During the conversation, the patient would answer questions but leave out tabor details believing that she had made statements to the psychiatrist that she did not. The patient appeared to be experiencing racing thoughts and she was easily distracted throughout the conversation. The patient is not currently seeing a psychiatrist or therapist. She is also not on any psych meds but she has been treated with Zoloft, Risperidone, Lexapro, and Prozac in the past. - SI/HI/SELF HARM SI/HI/SELF HARM (CURRENT OR HISTORY OF):: SI SI/HI/Self Harm Text (Current or History of):: overdosed on 24 tablets of Benadryl at age 18 - VIOLENCE/LEGAL/COLLATERAL Violence - Legal - Collateral: Violence: none Legal: none Collateral: none - PSYCHIATRIC HX/TREATMENT HX Psychiatric: Depression, Anxiety Psychiatric/Treatment Hx Other: Hx of depression. One prior inpatient admission 2 years ago at [facility]. No current outpatient care. - DRUG/ALCOHOL HX Substance use/abuse/alcohol text: MJ-uses daily from dispensary - MEDICAL HX Does the pt have a hx of MRSA?: No - HOME MEDICATIONS Home Meds (as last confirmed): none - ALLERGIES Allergies (as last confirmed): Allergies Allergy/AdvReac Type Severity Reaction Status Date / Time No Known Drug Allergies Allergy Verified 08/12/19 15:58 - FAMILY PSYCH/SUICIDE/SOCIAL HX-MENTAL Family - Suicide - Social Hx and Mental Status Exam: Family Psychiatric History: father-diagnosed with mood disorder Social History: lives with parents. Employment: unemployed Education: HS grad, some college Stressors: see HPI History: none Abuse: patient denies. Mental Status Examination: Attitude and behavior: cooperative Speech: hyper verbal but not rapid or pressured Affect and mood: restricted affect and labile mood Association and thought processes: circumstantial Thought content: no delusions, + SI, no HI Perception: no hallucinations Sensorium, memory, and orientation: AAOx3 Intellectual functioning: average Insight and judgment: impaired - PATIENT PROBLEM LIST (1) Severe depressed bipolar II disorder without psychotic features Impression: The patient is a 24-year-old female who was brought to the hospital by police after she was found at a bridge contemplating jumping off. The patient reports severe depressed mood for the past several days with fluctuating moods alternating between feeling severely depressed and feeling great. Mood shifts often occur independent of outside stressors. The patient is not currently receiving outpatient services and is not seeing a psychiatrist or therapist. She is also not being treated with psychiatric meds. The patient is currently a risk to self and is inappropriate for outpatient psychiatric care. In patient care recommended. Admit as voluntary. Admit as involuntary if the patient is not agreeable. - TREATMENT/PHARMACOLOGICAL RECOMMENDATION Treatment - Pharmacological - Therapy Recommendations: Administer Seroquel 25 mg now followed by Seroquel 25 mg QAM and 50 mg QHS. Refer to inpatient psychiatric facility once bed available. - TIME SPENT & PROVIDER LOCATION Telepsych consultation conducted via videoconferencing: Yes List names and roles of persons who participated in consult: Jozef Haas M.D. [facility] Telepsych Provider Location: [place] Time Telepsych consult began: 00:34 Time Telepsych consult completed: 01:00
[2019-08-20 03:58] VITALS: BP 114/64
== END 2019-08-20 03:58 ==
LOC: ED 15:35
DX: R45.851 Suicidal ideations (principal); F31.81 Bipolar II disorder; F17.210 Nicotine dependence, cigarettes, uncomplicated
CPT/HCPCS: 36415; 80053; 80306; 80307; 80320; 80329; 81001; 81025; 83690; 84443; 85025; 99283; 99285; A9270; G0425; J8499; 81003; 87086

== ENCOUNTER 2019-09-06 17:48 | Outpatient (CLI) | payer MEDICAID | END 2019-09-06 17:49 | disposition home or self-care (01) | LOC: COV 17:48 | PROVIDERS: ATTEND Family Medicine | DX: R05 Cough (principal) ==

== ENCOUNTER 2019-09-21 07:00 | Outpatient (CLI) | payer MEDICAID ==
[2019-09-22 20:24] LABS: CANDIDA GROUP DNA POSITIVE (NEGATIVE); CANDIDA KRUSEI DNA NEGATIVE (NEGATIVE); TRICHOMONAS VAGINALIS DNA NEGATIVE (NEGATIVE)
[2019-09-22 21:09] LABS: TRICHOMONAS VAGINALIS DNA NEGATIVE (NEGATIVE)
== END 2019-09-21 23:59 | disposition home or self-care (01) ==
LOC: LAB.R 07:00
PROVIDERS: ATTEND Obstetrics & Gynecology
DX: N92.1 Excessive and frequent menstruation with irregular cycle (principal)
CPT/HCPCS: 87491; 87591; 87661; 87801

== ENCOUNTER 2019-10-03 14:36 | Outpatient (CLI) | payer MEDICAID ==
--- NOTE | 2019-10-03 17:48 | Ultrasound Report ---
Reason: METRORRHAGIA Procedure Date: 10/03/2019 Accession Number: [id number] / [id number] Procedure: US - Pelvic w/Transvaginal CPT Code: Final Report FULL RESULT: EXAM: PELVIC ULTRASOUND EXAM DATE: 10/03/2019 03:34 PM. CLINICAL HISTORY: Metrorrhagia. Cramping. Pelvic pain. Mirena IUD placed approximately 4 years ago. Uncertain LMP, approximately 09/22/2019. COMPARISON: PELVIC W/TRANSVAGINAL 06/16/2016 5:48 PM ABDOMEN/PELVIS W/ 10/28/2017 6:43 PM. TECHNIQUE: Realtime transabdominal pelvic scan performed to identify the uterus and adnexa and as an overview of other pelvic structures, followed by transvaginal scan to provide greater detail of the uterus and adnexa, with static image documentation. FINDINGS: Uterus: 7.9 x 3.1 x 5.2 cm, volume 65.8 cc. Anteverted position. Normal overall size and echotexture. Masses: None. Endometrium: 3 mm. Intrauterine device is present centrally located in the endometrial cavity within the mid body and fundus of the uterus in expected position. Cervix: Unremarkable. Right Ovary: 2.2 x 1.6 x 3 cm, volume 5.5 cc. Normal echotexture and blood flow. Left Ovary: 2.4 x 1.9 x 2.4 cm, volume 6 cc. Normal echotexture and blood flow. Free Fluid: Small volume of pelvic free fluid. Other: None. IMPRESSION: 1. Intrauterine device centrally located in the inferior cavity in expected position. Otherwise normal sonographic appearance of the uterus. 2. Normal ovaries. RADIA
== END 2019-10-03 14:37 | disposition home or self-care (01) ==
LOC: DI 14:36
PROVIDERS: ATTEND Obstetrics & Gynecology
DX: N92.1 Excessive and frequent menstruation with irregular cycle (principal); Z97.5 Presence of (intrauterine) contraceptive device
CPT/HCPCS: 76830; 76856

== ENCOUNTER 2019-11-30 13:21 | Outpatient (CLI) | payer MEDICAID ==
[2019-11-30 18:54] LABS: BASOPHILS % (AUTO) 0.7 %; EOSINOPHILS # (AUTO) 0.1 10^3/uL (0.0-0.7); EOSINOPHILS % (AUTO) 1.2 %; HGB - HEMOGLOBIN 13.3 g/dL (12.0-16.0); LYMPHOCYTES # (AUTO) 1.7 10^3/uL (1.5-3.5); LYMPHOCYTES % (AUTO) 42.1 %; MEAN CORPUSCULAR HEMOGLOBIN 28.1 pg (27.0-31.0); MEAN CORPUSCULAR HGB CONC 31.4 g/dL (32.0-36.0); MEAN CORPUSCULAR VOLUME 89.6 fL (81.0-99.0); MEAN PLATELET VOLUME 10.6 fL (7.9-10.8); MONOCYTES # (AUTO) 0.3 10^3/uL (0.0-1.0); MONOCYTES % (AUTO) 7.1 %; NEUTROPHILS % (AUTO) 48.7 %; PLT - PLATELET COUNT 282 10^3/uL (130-450); RED BLOOD COUNT 4.73 10^6/uL (4.20-5.40); RED CELL DISTRIBUTION WIDTH 13.2 % (12.0-15.0); WHITE BLOOD COUNT 4.1 x10^3/uL (4.8-10.8)
[2019-11-30 19:15] LABS: ALBUMIN 5.4 g/dL (3.2-5.5); ALBUMIN/GLOBULIN RATIO 1.8 (1.0-2.2); BILIRUBIN,TOTAL 1.5 mg/dL (0.2-1.0); CALCIUM 9.6 mg/dL (8.5-10.3); CREATININE 0.6 mg/dL (0.4-1.0); MAGNESIUM 2.1 mg/dL (1.7-2.8); PHOSPHORUS 4.2 mg/dL (2.5-4.6); TOTAL PROTEIN 8.4 g/dL (6.7-8.2)
[2019-11-30 19:23] LABS: THYROID STIMULATING HORMONE 1.12 uIU/mL (0.34-5.60)
== END 2019-11-30 23:59 | disposition home or self-care (01) ==
LOC: LAB.WCP 13:21
PROVIDERS: ATTEND Family Medicine
DX: R63.0 Anorexia (principal); R19.7 Diarrhea, unspecified; K90.0 Celiac disease
CPT/HCPCS: 36415; 80053; 80175; 81599; 82306; 82607; 82746; 83735; 84100; 84443; 85025

== ENCOUNTER 2020-08-13 07:00 | Outpatient (CLI) | payer MEDICAID ==
[2020-08-13 21:36] LABS: BACTERIAL VAGINOSIS DNA POSITIVE (NEGATIVE); CANDIDA GLABRATA DNA NEGATIVE (NEGATIVE); CANDIDA GROUP DNA NEGATIVE (NEGATIVE); CANDIDA KRUSEI DNA NEGATIVE (NEGATIVE); TRICHOMONAS VAGINALIS DNA NEGATIVE (NEGATIVE)
== END 2020-08-13 23:59 | disposition home or self-care (01) ==
LOC: LAB.N 07:00
PROVIDERS: ATTEND Family Medicine
DX: N89.8 Other specified noninflammatory disorders of vagina (principal); R30.0 Dysuria
CPT/HCPCS: 87661; 87801

== ENCOUNTER 2020-08-20 08:00 | Outpatient (CLI) | payer MEDICAID ==
[2020-08-20 18:31] LABS: RHEUMATOID FACTOR NEGATIVE (Negative)
[2020-08-22 14:27] LABS: ANA SCREEN NEGATIVE (NEGATIVE)
== END 2020-08-20 23:59 | disposition home or self-care (01) ==
LOC: LAB.WCP 08:00
PROVIDERS: ATTEND Nurse Practitioner Family
DX: M25.542 Pain in joints of left hand (principal); M25.541 Pain in joints of right hand; R63.0 Anorexia
CPT/HCPCS: 36415; 85651; 86038; 86140; 86430

== ENCOUNTER 2020-11-08 14:24 | Outpatient (CLI) | payer MEDICAID ==
--- NOTE | 2020-11-08 15:05 | DEXA Report ---
PROCEDURE: Dexa Spine and/or Hip INDICATIONS: ANOREXIA, CHRONIC TECHNIQUE: Dual energy x-ray absorptiometry (DXA) was performed on a MDLIVE System. Regions measur ed are the AP Spine, femoral neck, and if needed forearm. COMPARISON: None. FINDINGS: Lumbar Spine: Bone Mineral Density 1.230 g/cm/cm,T score 0.4. Left Hip: Bone Mineral Density 0.920 g/cm/cm,T score -0.7. Left Femoral Neck: Bone Mineral Density 0.941 g/cm/cm, T score -0.7. (T score greater or equal to -1.0: NORMAL) (T score from -1.1 to -2.4: OSTEOPENIA) (T score less than or equal to -2.5 to: OSTEOPOROSIS) Impression: Normal bone mineral density. Patients with diagnosis of osteoporosis or osteopenia should have regular bone mineral density assess ment. For those eligible for Medicare, routine testing is allowed once every 2 years. Testing frequ ency can be increased for patients who have rapidly progressing disease or for those who are receivin g medical therapy to restore bone mass. Reviewed by: Andres Marina MD on 11/08/2020 3:04 PM PDT Approved by: Andres Marina MD on 11/08/2020 3:04 PM PDT Station ID: [id number]
== END 2020-11-08 14:25 | disposition home or self-care (01) ==
LOC: DI 14:24
PROVIDERS: ATTEND Nurse Practitioner Family
DX: R63.0 Anorexia (principal)

== ENCOUNTER 2021-03-17 14:20 | Outpatient (CLI) | payer MEDICAID ==
[2021-03-18 19:50] LABS: BACTERIAL VAGINOSIS DNA NEGATIVE (NEGATIVE); CANDIDA GLABRATA DNA NEGATIVE (NEGATIVE); CANDIDA GROUP DNA NEGATIVE (NEGATIVE); CANDIDA KRUSEI DNA NEGATIVE (NEGATIVE); TRICHOMONAS VAGINALIS DNA NEGATIVE (NEGATIVE)
== END 2021-03-17 23:59 | disposition home or self-care (01) ==
LOC: LAB.R 14:20
PROVIDERS: ATTEND Obstetrics & Gynecology
DX: N89.8 Other specified noninflammatory disorders of vagina (principal)
CPT/HCPCS: 87661; 87801

== ENCOUNTER 2022-09-21 08:00 | Outpatient (CLI) | payer MEDICARE, MEDICAID ==
[2022-09-21 19:36] LABS: BACTERIAL VAGINOSIS DNA NEGATIVE (NEGATIVE)
[2022-09-21 19:37] LABS: CANDIDA GLABRATA DNA NEGATIVE (NEGATIVE); CANDIDA GROUP DNA NEGATIVE (NEGATIVE); CANDIDA KRUSEI DNA NEGATIVE (NEGATIVE); TRICHOMONAS VAGINALIS DNA NEGATIVE (NEGATIVE)
== END 2022-09-21 23:59 | disposition home or self-care (01) ==
LOC: LAB 08:00
PROVIDERS: ATTEND Nurse Practitioner
DX: N89.8 Other specified noninflammatory disorders of vagina (principal)
CPT/HCPCS: 81514

== ENCOUNTER 2022-09-21 14:57 | Outpatient (CLI) | payer MEDICARE, MEDICAID ==
[2022-09-21 15:21] LABS: BASOPHILS % (AUTO) 0.6 %; EOSINOPHILS # (AUTO) 0.1 10^3/uL (0.0-0.7); EOSINOPHILS % (AUTO) 0.9 %; HCT - HEMATOCRIT 42.1 % (37.0-47.0); HGB - HEMOGLOBIN 14.3 g/dL (12.0-16.0); LYMPHOCYTES # (AUTO) 1.9 10^3/uL (1.5-3.5); LYMPHOCYTES % (AUTO) 35.9 %; MEAN CORPUSCULAR HEMOGLOBIN 31.7 pg (27.0-31.0); MEAN CORPUSCULAR VOLUME 93.3 fL (81.0-99.0); MEAN PLATELET VOLUME 9.4 fL (7.9-10.8); MONOCYTES # (AUTO) 0.3 10^3/uL (0.0-1.0); NEUTROPHILS # (AUTO) 3.1 10^3/uL (1.5-6.6); NEUTROPHILS % (AUTO) 57.4 %; PLT - PLATELET COUNT 253 10^3/uL (130-450); RED BLOOD COUNT 4.51 10^6/uL (4.20-5.40); RED CELL DISTRIBUTION WIDTH 11.6 % (12.0-15.0); WHITE BLOOD COUNT 5.4 x10^3/uL (4.8-10.8)
[2022-09-21 16:19] LABS: THYROID STIMULATING HORMONE 0.87 uIU/mL (0.34-5.60)
[2022-09-21 16:21] LABS: FERRITIN 17.6 ng/mL (11.0-306.8)
[2022-09-21 21:38] LABS: ESTIMATED AVERAGE GLUCOSE 100 mg/dL (70-100); HEMOGLOBIN A1c% 5.1 % (4.27-6.07)
[2022-09-22 15:09] LABS: HSV 1 IGG TYPE SPEC <0.91 index (0.00-0.90); HSV 2 IGG TYPE SPEC <0.91 index (0.00-0.90)
== END 2022-09-21 14:58 | disposition home or self-care (01) ==
LOC: LAB 14:57
PROVIDERS: ATTEND Nurse Practitioner
DX: F39 Unspecified mood [affective] disorder (principal); R63.4 Abnormal weight loss; Z11.3 Encounter for screening for infections with a predominantly sexual mode of transmission
CPT/HCPCS: 36415; 82306; 82728; 83036; 84443; 85025; 86695; 86696

== ENCOUNTER 2023-03-17 14:19 | Emergency (ER) | payer MEDICARE, MEDICAID ==
--- NOTE | 2023-03-17 14:50 | ED Physician Documentation ---
History of Present Illness - Stated complaint Stated Complaint: CHEST PX/COUGHING BLOOD - Chief complaint Chief Complaint: Resp - History obtained from History obtained from: Patient - History of Present Illness Timing: Today Pain level max: 0 Pain level now: 0 - Additonal information Additional information: 28-year-old female presents to the emergency department stating that a few days ago when she was a vaping off a THC/CBD pen, she coughed and noted blood in her sputum. It was bright red, small amount. Has not recurred since. She went to the walk-in clinic today and they were concerned for potential PE so sent the patient here. No leg swelling. No arm swelling. No recent travel. Not on oral contraceptive pills. Does not use tobacco. No fevers, rhinorrhea, congestion, cough, nausea or vomiting. Review of Systems Constitutional: denies: Fever, Chills Nose: denies: Rhinorrhea / runny nose, Congestion Throat: denies: Sore throat Respiratory: denies: Dyspnea, Wheezing : denies: Now EGA Musculoskeletal: denies: Neck pain, Back pain Neurologic: denies: Headache PD PAST MEDICAL HISTORY - Past Medical History Past Medical History: Yes Psych: Depression, Anxiety Other Past Medical History: Gastroparesis, celiac disease - Past Surgical History Past Surgical History: No - Allergies Allergies/Adverse Reactions: Allergies Allergy/AdvReac Type Severity Reaction Status Date / Time No Known Drug Allergies Allergy Verified 03/17/23 14:36 - Social History Does the pt smoke?: No Smoking Status: Former smoker Does the pt drink ETOH?: Yes Does the pt have substance abuse?: Yes Substance Use and Type: Marijuana - Family History Family history: reports: Non contributory - Immunizations Immunizations are current?: Yes - POLST Patient has POLST: No PD ED PE NORMAL - Vitals Vital signs reviewed: Yes - General General: Alert and oriented X 3, No acute distress - HEENT HEENT: PERRL, Ears normal, Moist mucous membranes, Pharynx benign - Neck Neck: Supple, no meningeal sign - Cardiac Cardiac: RRR, Strong equal pulses - Respiratory Respiratory: No respiratory distress, Clear bilaterally - Abdomen Abdomen: Soft, Non tender, Non distended - Derm Derm: Warm and dry, No rash - Extremities Extremities: No edema, No calf tenderness / cord - Neuro Neuro: Alert and oriented X 3 - Psych Psych: Normal mood, Normal affect Results - Vitals Vitals: Vital Signs - 24 hr 03/17/23 14:28 Temperature 37.0 C Heart Rate 90 Respiratory 18 Rate Blood Pressure 115/74 O2 Saturation 98 Oxygen O2 Source Room air - EKG (time done) 1433 EKG releavant findings:: EKG personally interpreted by author of this note. Relevant findings are: Rate: Rate (enter#) (82) Rhythm: NSR [place]: Normal Intervals: Normal ND QRS: Normal Ischemia: Normal ST segments - Labs Labs: Laboratory Tests 03/17/23 03/17/23 03/17/23 15:11 15:11 15:11 WBC 3.7 L RBC 4.20 Hgb 13.1 Hct 39.6 MCV 94.3 MCH 31.2 H MCHC 33.1 RDW 11.8 L Plt Count 264 MPV 9.2 Neut # (Auto) 1.9 Lymph # (Auto) 1.5 [place] # (Auto) 0.3 Eos # (Auto) 0.1 Baso # (Auto) 0.0 Absolute Nucleated RBC 0.00 Nucleated RBC % 0.0 D-Dimer < 200.0 L Sodium 139 Potassium 3.8 Chloride 105 Carbon Dioxide 28 Anion Gap 6.0 BUN 7 Creatinine 0.6 Estimated GFR (MDRD) 121 Glucose 132 H Calcium 9.8 Total Bilirubin 1.6 H AST 10 ALT 7 L Alkaline Phosphatase 52 Total Protein 7.1 Albumin 4.7 Globulin 2.4 Albumin/Globulin Ratio 2.0 - Rads (name of study) cxr Relevant Findings:: Final report received, See rad report PD Medical Decision Making - ED course Complexity details: reviewed results, re-evaluated patient, considered differential, d/w patient ED course: Patient with a small amount of mopped assist 2 days ago after using a vape pen. Likely caused by the shear forces of the coughing. No significant lab abnormalities. D-dimer is negative. Chest x-ray is normal. Patient is asymptomatic here. We will have her follow-up with her PCP for further care as needed. Patient counseled regarding signs and symptoms for which I believe and urgent re-evaluation would be necessary. Patient with good understanding of and agreement to plan and is comfortable going home at this time This document was made in part using voice recognition software. While efforts are made to proofread this document, sound alike and grammatical errors may occur. Departure - Departure Disposition: 01 Home, Self Care Clinical Impression: Hemoptysis Condition: Good Instructions: ED Hemoptysis Follow-Up: COBY PIZANO PA-C [Primary Care Provider] - Comments: Please follow-up with your doctor for further care. Your x-ray, laboratory testing and EKG did not show any abnormalities. There is no evidence of blood clot in your lungs. As we discussed vaping and forceful coughing can cause small tears that can cause bleeding. Please return if you worsen. Forms: PCP List
[2023-03-17 15:16] LABS: BASOPHILS % (AUTO) 0.8 %; EOSINOPHILS # (AUTO) 0.1 10^3/uL (0.0-0.7); EOSINOPHILS % (AUTO) 1.6 %; HCT - HEMATOCRIT 39.6 % (37.0-47.0); HGB - HEMOGLOBIN 13.1 g/dL (12.0-16.0); LYMPHOCYTES # (AUTO) 1.5 10^3/uL (1.5-3.5); LYMPHOCYTES % (AUTO) 38.8 %; MEAN CORPUSCULAR HEMOGLOBIN 31.2 pg (27.0-31.0); MEAN CORPUSCULAR HGB CONC 33.1 g/dL (32.0-36.0); MEAN CORPUSCULAR VOLUME 94.3 fL (81.0-99.0); MEAN PLATELET VOLUME 9.2 fL (7.9-10.8); MONOCYTES # (AUTO) 0.3 10^3/uL (0.0-1.0); MONOCYTES % (AUTO) 7.8 %; NEUTROPHILS # (AUTO) 1.9 10^3/uL (1.5-6.6); PLT - PLATELET COUNT 264 10^3/uL (130-450); RED CELL DISTRIBUTION WIDTH 11.8 % (12.0-15.0); WHITE BLOOD COUNT 3.7 x10^3/uL (4.8-10.8)
[2023-03-17 15:29] LABS: ALBUMIN 4.7 g/dL (3.2-5.5); BILIRUBIN,TOTAL 1.6 mg/dL (0.2-1.0); CALCIUM 9.8 mg/dL (8.5-10.3); CREATININE 0.6 mg/dL (0.6-1.3); POTASSIUM 3.8 mmol/L (3.5-4.5); TOTAL PROTEIN 7.1 g/dL (6.4-8.9)
--- NOTE | 2023-03-17 15:40 | XRAY Report ---
PROCEDURE: Chest 2 View X-Ray INDICATIONS: cough TECHNIQUE: 2 views of the chest were acquired. COMPARISON: None. FINDINGS: Surgical changes and devices: None. Lungs and pleura: No pleural effusions or pneumothorax. Lungs are clear. Mediastinum: Mediastinal contours appear normal. Heart size is normal. Bones and chest wall: No suspicious bony lesions. Overlying soft tissues appear unremarkable. IMPRESSION: No acute cardiopulmonary process. Reviewed by: Lex Fitzgerald MD on 03/17/2023 3:38 PM PDT Approved by: Lex Fitzgerald MD on 03/17/2023 3:38 PM PDT Station ID: [id number]
[2023-03-17 16:38] VITALS: BP 112/78; O2SAT 100
== END 2023-03-17 16:37 | disposition home or self-care (01) ==
LOC: ED 14:19
DX: R04.2 Hemoptysis (principal); K90.0 Celiac disease; F17.290 Nicotine dependence, other tobacco product, uncomplicated
CPT/HCPCS: 36415; 80053; 85025; 85379; 93005; 99283; 99284

== ENCOUNTER 2023-05-29 01:12 | Outpatient (CLI) | payer MEDICARE, MEDICAID | END 2023-05-29 01:13 | disposition critical access hospital (66) | LOC: EMS 01:12 | DX: R41.0 Disorientation, unspecified (principal); R20.0 Anesthesia of skin; R07.9 Chest pain, unspecified; R42 Dizziness and giddiness; F41.9 Anxiety disorder, unspecified | CPT/HCPCS: A0425; A0429 ==

== ENCOUNTER 2023-05-29 01:29 | Emergency (ER) | payer MEDICARE, MEDICAID ==
[2023-05-29 01:59] LABS: BASOPHILS % (AUTO) 0.5 %; EOSINOPHILS # (AUTO) 0.2 10^3/uL (0.0-0.7); EOSINOPHILS % (AUTO) 3.5 %; HCT - HEMATOCRIT 38.4 % (37.0-47.0); HGB - HEMOGLOBIN 12.9 g/dL (12.0-16.0); LYMPHOCYTES # (AUTO) 2.2 10^3/uL (1.5-3.5); LYMPHOCYTES % (AUTO) 39.3 %; MEAN CORPUSCULAR HEMOGLOBIN 30.8 pg (27.0-31.0); MEAN CORPUSCULAR HGB CONC 33.6 g/dL (32.0-36.0); MEAN CORPUSCULAR VOLUME 91.6 fL (81.0-99.0); MEAN PLATELET VOLUME 9.3 fL (7.9-10.8); MONOCYTES # (AUTO) 0.3 10^3/uL (0.0-1.0); NEUTROPHILS # (AUTO) 2.8 10^3/uL (1.5-6.6); NEUTROPHILS % (AUTO) 50.5 %; PLT - PLATELET COUNT 269 10^3/uL (130-450); RED BLOOD COUNT 4.19 10^6/uL (4.20-5.40); RED CELL DISTRIBUTION WIDTH 12.1 % (12.0-15.0); WHITE BLOOD COUNT 5.5 x10^3/uL (4.8-10.8)
[2023-05-29 02:15] LABS: ALBUMIN 4.6 g/dL (3.2-5.5); ALBUMIN/GLOBULIN RATIO 1.9 (1.0-2.2); BILIRUBIN,TOTAL 0.8 mg/dL (0.2-1.0); CALCIUM 9.8 mg/dL (8.5-10.3); CREATININE 0.6 mg/dL (0.6-1.3); POTASSIUM 3.7 mmol/L (3.5-4.5)
[2023-05-29 02:18] LABS: BILIRUBIN,URINE NEGATIVE (NEGATIVE); GLUCOSE, URINE (UA) NEGATIVE (NEGATIVE); KETONES,URINE (UA) TRACE mg/dL (NEGATIVE); LEUKOCYTE ESTERASE, URINE NEGATIVE (NEGATIVE); NITRITE,URINE NEGATIVE (NEGATIVE); OCCULT BLOOD,URINE TRACE-INTA (NEGATIVE); PROTEIN,URINE NEGATIVE (NEGATIVE); UROBILINOGEN,URINE 0.2 (NORMAL) E.U./dL (NORMAL)
[2023-05-29 02:36] LABS: CLARITY,URINE CLEAR (CLEAR); HCG UR QUAL NEGATIVE
--- NOTE | 2023-05-29 03:51 | ED Physician Documentation ---
History of Present Illness - Stated complaint Stated Complaint: ANXIETY/HEART PALP - Chief complaint Chief Complaint: General - Additonal information Additional information: Patient 28-year-old female presenting to the emergency department with right- sided chest pain. Reports a past medical history significant for gastroparesis for which she takes multiple medications. TookDomperidone, (Motilium) which she states she purchases in [place] at the instruction of her GI doctor this evening along with Zofran. She states that she was instructed by her GI doctor did not do this as the 2 medications combined can cause cardiac arrhythmias. Shortly thereafter she began experiencing right sided chest pain. States has had pain like this similarly in the past however decided that she wanted to call 911 to "get it checked out". 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 POTS - Past Surgical History Past Surgical History: No - Present Medications Home Medications: Ambulatory Orders Medication Instructions Recorded Confirmed Ondansetron Odt [Zofran Odt] 4 mg PO Q6HR PRN 05/29/23 05/29/23 Zolpidem Tartrate [Ambien] 10 mg PO HS PRN 05/29/23 05/29/23 lamoTRIgine [LaMICtal] 100 mg PO HS 05/29/23 05/29/23 - Allergies Allergies/Adverse Reactions: Allergies Allergy/AdvReac Type Severity Reaction Status Date / Time gluten Allergy Cramps Verified 05/29/23 01:48 - Social History Does the pt smoke?: No Smoking Status: Never smoker Does the pt drink ETOH?: Yes Does the pt have substance abuse?: No - Immunizations Immunizations are current?: Yes - POLST Patient has POLST: No Results - Vitals Vitals: Vital Signs - 24 hr 05/29/23 05/29/23 05/29/23 01:34 01:47 03:30 Temperature 37 C Heart Rate 90 80 73 Respiratory 18 18 23 Rate Blood Pressure 113/79 113/79 111/72 O2 Saturation 99 99 96 Oxygen O2 Source Room air - EKG (time done) 0150 EKG releavant findings:: EKG personally interpreted by author of this note. Relevant findings are: Sinus rhythm with rate 79 bpm. Normal axis. Normal MD, QRS, QTc intervals. No ST segment elevations or T wave inversions. - Labs Labs: Laboratory Tests 05/29/23 05/29/23 05/29/23 01:47 01:47 01:47 WBC 5.5 RBC 4.19 L Hgb 12.9 Hct 38.4 MCV 91.6 MCH 30.8 MCHC 33.6 RDW 12.1 Plt Count 269 MPV 9.3 Neut # (Auto) 2.8 Lymph # (Auto) 2.2 [place] # (Auto) 0.3 Eos # (Auto) 0.2 Baso # (Auto) 0.0 Absolute Nucleated RBC 0.00 Nucleated RBC % 0.0 D-Dimer 232.4 Sodium 138 Potassium 3.7 Chloride 105 Carbon Dioxide 26 Anion Gap 7.0 BUN 9 Creatinine 0.6 Estimated GFR (MDRD) 121 Glucose 105 H Calcium 9.8 Total Bilirubin 0.8 AST 42 ALT 52 Alkaline Phosphatase 48 Total Protein 7.0 Albumin 4.6 Globulin 2.4 Albumin/Globulin Ratio 1.9 Lipase 20 Urine Color Urine Clarity Urine pH Ur Specific [place] Urine Protein Urine Glucose (UA) Urine Ketones Urine Occult Blood Urine Nitrite Urine Bilirubin Urine Urobilinogen Ur Leukocyte Esterase Ur Microscopic Review Urine Culture Comments Urine HCG, Qual 05/29/23 02:05 WBC RBC Hgb Hct MCV MCH MCHC RDW Plt Count MPV Neut # (Auto) Lymph # (Auto) [place] # (Auto) Eos # (Auto) Baso # (Auto) Absolute Nucleated RBC Nucleated RBC % D-Dimer Sodium Potassium Chloride Carbon Dioxide Anion Gap BUN Creatinine Estimated GFR (MDRD) Glucose Calcium Total Bilirubin AST ALT Alkaline Phosphatase Total Protein Albumin Globulin Albumin/Globulin Ratio Lipase Urine Color YELLOW Urine Clarity CLEAR Urine pH 6.0 Ur Specific [place] 1.020 Urine Protein NEGATIVE Urine Glucose (UA) NEGATIVE Urine Ketones TRACE Urine Occult Blood TRACE-INTA Urine Nitrite NEGATIVE Urine Bilirubin NEGATIVE Urine Urobilinogen 0.2 (NORMAL) Ur Leukocyte Esterase NEGATIVE Ur Microscopic Review NOT INDICATED Urine Culture Comments NOT INDICATED Urine HCG, Qual NEGATIVE PD Medical Decision Making - ED course Complexity details: reviewed old records, reviewed results, re-evaluated patient, d/w patient ED course: Patient 28-year-old female presenting to the emergency department with right- sided chest pain. Afebrile, hemodynamically stable on arrival to the emergency department. Though patient did take to QTc prolonging medications prior to arrival and her QTc here in the emergency department is normal as is her EKG. She had a normal high-sensitivity troponin and normal D-dimer. Her chest x-ray per my interpretation was nonacute. She does not have significant risk factors for coronary artery disease with an exceptionally low heart score and there is nothing in her chest x-ray or clinical presentation that is imminently suggestive of aortic pathology or more severe disease.Will discharge at this time with encouragement to take her medications in the future only as prescribed and to follow-up with primary care. Departure - Departure Disposition: Home, Self Care Clinical Impression: Chest pain Qualifiers: Chest pain type: other chest pain Qualified Code(s): R07.89 - Other chest pain Instructions: ED Chest Pain Atypical Unkn Cause Comments: Thank you for allowing us to care for you this evening at [facility]. Today in the emergency department you were evaluated for any possible dangerous or life-threatening medical emergency. All the testing performed in the emergency department today including your EKG, continuous monitoring on telemetry, blood work and chest x-ray and urine analysis were all very reassuring. I would like you to discuss your use of domperidone with your primary care doctor and measurement and sensing technician. I do strongly encourage you to not mix medications in the future that you have been instructed to avoid by your primary care doctor or measurement and sensing technician. Please drink plenty of fluids and get plenty of rest over the course of the next few days. If it anytime you have new or worsening symptoms or if your symptoms or not improving as you feel they should please return to the emergency department. Forms: PCP List
[2023-05-29 04:13] VITALS: BP 101/70; O2SAT 97
[2023-05-29 04:47] LABS: TROPONIN I HIGH SENSITIVITY 2.3 ng/L (2.3-14.8)
--- NOTE | 2023-05-29 09:35 | XRAY Report ---
PROCEDURE: Chest 1 View X-Ray INDICATIONS: chest pain TECHNIQUE: One view of the chest was acquired. COMPARISON: 03/17/2023 FINDINGS: Surgical changes and devices: None. Lungs and pleura: No pleural effusions or pneumothorax. Lungs are clear. Mediastinum: Mediastinal contours appear normal. Heart size is normal. Bones and chest wall: No suspicious bony lesions. Overlying soft tissues appear unremarkable. IMPRESSION: No acute cardiopulmonary process. Note: No significant discrepancy from the preliminary report. Reviewed by: Mehrdad Tavares MD on 05/29/2023 8:33 AM [facility] Approved by: Mehrdad Tavares MD on 05/29/2023 8:33 AM [facility] Station ID: [id number]
== END 2023-05-29 04:13 | disposition home or self-care (01) ==
LOC: EDUNIT# → ED 01:29
DX: R07.89 Other chest pain (principal); Z79.899 Other long term (current) drug therapy
CPT/HCPCS: 36415; 80053; 81001; 81003; 81025; 83690; 84484; 85025; 85379; 87086; 93005; 99283; 99284

== ENCOUNTER 2023-07-04 11:00 | Outpatient (CLI) | payer MEDICARE, OTHER, MEDICAID ==
--- NOTE | 2023-07-04 18:22 | Ultrasound Report ---
PROCEDURE: Pelvic w/Transvaginal INDICATIONS: IUD SURVEILLANCE TECHNIQUE: Real-time scanning was performed of the pelvic organs, with image documentation. Additional endovagi nal scanning was necessary due to incomplete visualization of the adnexal and endometrial structures by transabdominal scanning. COMPARISON: Pelvic ultrasound on June 26, 2016. FINDINGS: Uterus: Uterus is anteverted and normal in size at 8.9 x 3.2 x 4.2 cm. The myometrium is heterogene ous. The endometrium measures 3 mm in combined thickness. IUD is appropriately positioned. Cervix a nd vagina are within normal limits. Ovaries: The right ovary measures 2 x 1.3 x 1.7 cm, with a calculated ovarian volume of 2.3 cc. The left ovary measures 2.8 x 1.9 x 2.1 cm, with a calculated ovarian volume of 5.7 cc. Dominant left-si ded follicle versus cyst measuring 1.6 x 2.3 x 1.8 cm. The ovaries have a normal sonographic appearan ce. Less than 12 follicles can be seen in each ovary. No adnexal masses are seen. No cystic lesions measuring greater than 3 cm. Other: No pathologic free abdominal or pelvic fluid. IMPRESSION: 1.IUD is appropriately positioned. 2.Endometrial thickness is 3 mm. 3.Normal sonographic appearance of the bilateral ovaries, given patient's age. Reviewed by: Ronald Felton MD on 07/04/2023 6:20 PM PST Approved by: Ronald Felton MD on 07/04/2023 6:20 PM PST Station ID: [id number]
== END 2023-07-04 11:01 | disposition home or self-care (01) ==
LOC: DI 11:00
PROVIDERS: ATTEND Obstetrics & Gynecology
DX: Z30.431 Encounter for routine checking of intrauterine contraceptive device (principal); R10.11 Right upper quadrant pain

== ENCOUNTER 2023-07-04 11:00 | Outpatient (CLI) | payer MEDICARE, OTHER, MEDICAID ==
--- NOTE | 2023-07-04 18:26 | Ultrasound Report ---
PROCEDURE: Abdomen Limited INDICATIONS: RUQ PAIN TECHNIQUE: Real-time focused scanning was performed of the abdomen, with image documentation. COMPARISONS: None. FINDINGS: Liver: Liver is normal in size and homogeneous in echotexture. Main portal vein is patent with hepa topedal flow. Gallbladder: No stones or sludge. Normal wall thickness measuring 2 mm. No pericholecystic fluid or s onographic García's. Biliary ducts: Intrahepatic bile ducts are non-dilated. Extrahepatic bile duct caliber measures 4 m m. Normal is 6-7 mm or less in diameter, or 10 mm or less post-cholecystectomy. Pancreas: Visualized portions of the pancreas are sonographically normal. Right kidney: Normal in size and echotexture. Right kidney measures 9.8 cm long. No hydronephrosis o r nephrolithiasis. No solid masses. No complex renal cystic lesions which require follow-up. IMPRESSION: Unremarkable abdominal ultrasound. Reviewed by: Ronald Felton MD on 07/04/2023 6:25 PM PST Approved by: Ronald Felton MD on 07/04/2023 6:25 PM PST Station ID: [id number]
== END 2023-07-04 11:01 | disposition home or self-care (01) ==
LOC: DI 11:00
PROVIDERS: ATTEND Nurse Practitioner Family
DX: R10.11 Right upper quadrant pain (principal)